=== PATIENT | male | born 2000 | race Caucasian/White ===

== ENCOUNTER 2025-05-19 01:53 | Emergency (ER) | payer OTHER ==
[~2025-05-19] VITALS: Ht 167.6 cm; Wt 75.6 kg
[2025-05-19 02:11] VITALS: TEMP 98
[2025-05-19] MEDS: NS (Normal Saline) 0.9% 1,000 ML IV ONE (04:43)
[2025-05-19] MEDS: diphenhydrAMINE 50 MG/ML VIAL IV STA (04:44)
[2025-05-19] MEDS: FAMOTIDINE 20 MG/2 ML VIAL IVP ONE (04:44)
[2025-05-19] MEDS ORDERED: PRED20TA PO (05:59)
[2025-05-19] MEDS ORDERED: PEPC1TAB5 PO (05:59)
[2025-05-19] MEDS ORDERED: CETI-24 PO (05:59)
[2025-05-19 06:38] VITALS: O2SAT 98
[2025-05-19 06:45] VITALS: BP 125/79
[2025-05-19] MEDS ORDERED: EPIP0.3I2 IM (06:55)
== END 2025-05-19 07:10 | disposition home or self-care (01) ==
LOC: M ED 01:53
DX: T78.2XXA Anaphylactic shock, unspecified, initial encounter (principal); Z79.899 Other long term (current) drug therapy; Z79.52 Long term (current) use of systemic steroids
CPT/HCPCS: 93041; 94760; 96374; 99285; J1200; J1308; J2919